=== PATIENT | male | born 1955 | race Caucasian/White ===

== ENCOUNTER → 2021-10-14 13:16 | Outpatient (CLI) | payer OTHER, SELFPAY ==
[2021-10-14 13:55] LABS: Appearance Urine UA CLEAR; Bilirubin Urine UA NEGATIVE (NEGATIVE); Color Urine UA YELLOW; Glucose Urine UA NEGATIVE (Negative); Ketones Urine UA NEGATIVE (NEGATIVE); Leukocyte Esterase Urine UA NEGATIVE (NEGATIVE); Nitrite Urine UA NEGATIVE (Negative); Occult Blood Urine UA TRACE-LYSED (Negative); Protein Urine UA 1+ (Negative); Specific Gravity Urine UA 1.025 (1.000-1.035); Urobilinogen Urine UA 0.2 E.U./dL (0.2)
[2021-10-14 14:21] LABS: Bacteria Urine None Seen; Culture Indicated Urine Cult Not Indicated; RBC Urine None Seen (0-5/HPF); Squamous Epithelial Cell Urine None Seen (0-5/HPF); WBC Urine 0-1/HPF (0-5/HPF)
[2021-10-14 14:40] LABS: Add Manual Diff / Slide Review NO; Basophils Absolute Auto 0 /uL (0-100); Basophils Percent Auto 0.5 % (0-2); Eosinophils Absolute Auto 200 /uL (0-450); Eosinophils Percent Auto 2.6 % (2-4); Hematocrit 44.1 % (41-53); Lymphocytes Absolute Auto 1800 /uL (1100-4500); Lymphocytes Percent Auto 25.5 % (25-40); Mean Corpuscular HGB Conc 33.9 % (30-36); Mean Corpuscular Hemoglobin 28.8 PG (26-34); Monocytes Absolute Auto 800 /uL (0-900); Monocytes Percent Auto 10.3 % (3-14); Neutrophils Absolute Auto 4400 /uL (1500-7000); Neutrophils Percent Auto 61.1 % (50-75); Platelet Count 354 X10^3/uL (150-400); Red Blood Cell Count 5.19 X10^6/uL (4.5-5.9); Red Cell Distribution Width 13.8 % (11.6-14.8); White Blood Cell Count 7.3 X10^3/uL (4.5-11.0)
[2021-10-14 14:44] LABS: Hemoglobin A1C% w Est Avg Glu 6.5 % (4.0-6.0)
[2021-10-14 15:04] LABS: BUN Creatinine Ratio 20.2 (6-22); Blood Urea Nitrogen 21 mg/dL (9-20); Carbon Dioxide 23 mmol/L (22-32); Chloride 103 mmol/L (98-107); Estimated Glomerular Filt Rate > 60 mL/min (>60); Glucose 112 mg/dL (80-110); HEMOLYSIS < 15 (0-50); Sodium 139 mmol/L (137-145)
[2021-10-14 15:40] LABS: Erythrocyte Sedimentation Rate 10 MM/HR (0-15)
== END ==
PROVIDERS: Referring Provider Orthopaedic Surgery; Visit Provider Orthopaedic Surgery
DX: Z01.818 Encounter for other preprocedural examination (principal); Z01.812 Encounter for preprocedural laboratory examination; R73.9 Hyperglycemia, unspecified; N39.0 Urinary tract infection, site not specified
CPT/HCPCS: 36415; 80048; 81001; 83036; 85025; 85651; 93005; 93010

== ENCOUNTER → 2021-11-03 09:31 | Outpatient (CLI) | payer OTHER, SELFPAY ==
[2021-11-03 14:12] LABS: COVID-19 CEPHEID PCR (VTM/NP) Negative (Negative)
== END ==
PROVIDERS: PCP Family Medicine; Referring Provider Orthopaedic Surgery; Visit Provider Orthopaedic Surgery
DX: Z20.822 Contact with and (suspected) exposure to COVID-19 (principal)
CPT/HCPCS: U0003; U0005

== ENCOUNTER 2021-11-04 09:24 | Day surgery (SDC) | payer OTHER, SELFPAY ==
[2021-10-27 07:35] VITALS: BMI 38.7
[2021-11-04] VITALS (14 sets, daily range): BP systolic 121–157; BP diastolic 62–84; PULSE 60–89; RESP 12–18; TEMP 35.9–37.2; O2SAT 93–98; BMI 38.7
--- NOTE | 2021-11-04 09:30 | DI.RAD.S_ITS ---
PROCEDURE: XR KNEE RT 1TO2V INDICATIONS: prosthesis placement TECHNIQUE: 2 view(s) of the knee acquired. COMPARISON: [facility] [place], [place], XR KNEE 4+ VIEWS LEFT, 01/30/2021, 14:00. FINDINGS: Bones: Patient is status post knee joint arthroplasty. Hardware components are in expected positions. Visualized bony structures are intact. Healed fracture deformity again seen involving the proximal fibular shaft. Soft tissues: Overlying postoperative changes are noted. IMPRESSION: Expected immediate postoperative appearance of right TKA. Dictated by: Prosper Jain RRA Interpreted: Carolyn Seo MD on 11/04/2021 at 15:44 Transcribed by: ROMARIO on 11/04/2021 at 15:44 Approved by: Carolyn Seo M.D. on 11/04/2021 at 17:25
[2021-11-04] MEDS: PREGABALIN 75 MG CAPSULE PO (10:15)
[2021-11-04] MEDS: ACETAMINOPHEN 325 MG TABLET 975 MG PO (10:15)
[2021-11-04] MEDS: CELECOXIB 200 MG CAPSULE PO (10:16)
[2021-11-04] MEDS: VANCOMYCIN 1,000 MG/200 ML PIGGYBACK 200 MG IV (10:26)
[2021-11-04] MEDS: LACTATED RINGERS 1,000 ML 84 ML IV ×2 (10:30→13:59)
--- NOTE | 2021-11-04 11:03 | PM.PREOP ---
Pre-operative Note COVID-19 COVID-19 status: Negative Interval Note History & Physical reviewed/Exam performed by Physician: Yes Changes to H&P: No
--- NOTE | 2021-11-04 11:03 | PM.OP.1 ---
Operative Date/Time/Diagnoses Date of procedure: 11/04/21 Time of procedure: 11:30 Pre-op diagnosis: Right knee persistent pain after unicompartment arthroplasty Post-op diagnosis: same Procedure & Clinicians Procedure: Right total knee arthroplasty revision unicompartment to total knee arthroplasty Same procedure as scheduled: Yes Indications: The patient has had progressively worsening right knee pain after a right knee medial compartment arthroplasty with radiographic changes in the lateral and patellofemoral compartment consistent with arthritis. Non-operative management has failed and the patient has requested revision total knee replacement. The risks, benefits and alternatives to surgery were discussed with the patient prior to proceeding. Risks discussed included, but were not limited to, failure to relieve pain, stiffness, infection, nerve damage, deep venous thrombosis, pulmonary embolism, stroke, coma, heart attack, permanent paralysis and , as well as the potential need for eventual rerevision of the prosthetic. Surgeon: Naheed Yepez Manager Risk Management: Tylor Nava Anesthesia Type: General and Spinal Operative Notes Findings: No obvious loosening, some patellofemoral and lateral compartment OA Closure Type: primary Specimen(s): other (Cultures and PCR) Prosthetic devices, grafts, tissues, transplants, or devices: Journey BCS 2 size 7 femur, size 7 tibia, +12 poly, size 12 by 100 tibial stem, 38 oval patella Applied: drain(s) Estimated Blood Loss (mL): 250 Blood products transfused: none Tourniquet time (min): 136 Procedure in detail: The patient was seen in the pre-operative area, where the patient identified the right knee as the operative site and this was marked with my initials. The patient received pre-operative antibiotics, and was taken to the operating room and placed on the operative table in the supine position. After satisfactory anesthesia, a maritime engineer out was performed. The right leg was encircled with a tourniquet about the proximal thigh, and the leg was prepared from the toes to the tourniquet with ChloroPrep in the usual fashion and draped through sterile drapes. The leg was elevated and exsanguinated with Eschmark bandage and the tourniquet inflated to [250] mmHg pressure. The knee was approached through an approximately 20 cm incision centered over the patella and carried into the knee through a medial parapatellar arthrotomy. A portion of the acl and lateral meniscus was resected. Soft tissue was carefully mobilized around the patella the patella was measured with a caliper. Bone was resected from the patella and the patellar height was reconstituted with up an appropriate sized patellar component. A cover was then placed on the patella. A small amount of additional lateral meniscus was resected. There was thickening of the synovium of the knee but nothing that looks consistent with a chronic low-grade infection. The polyethylene from the tibial component was removed in order to provide additional room. Piece of synovium was sent for culture and sensitivity. The distal femur was cut at 5?. A [+2] cut was used. The femoral unicompartment component was left in and used for determining distal joint line. It looked like an appropriate cut and that there would be adequate distal femoral bone. The lateral condyle was cut a portion of the most medial aspect of the medial condyle and lateral aspect of the medial femoral condyle was scored with the saw. I then used a TPS and multiple osteotomes to meticulously remove the femoral component. There was essentially known bone loss distally. There was no bone loss posteriorly. Small fragment of bone and soft tissue from underneath the femoral component was sent for culture and sensitivity and I sent a combined PCR specimen. It looked like an adequate distal femoral cut and was noted that it was aligned and smooth. It looked like an appropriate distal femoral cut and the cut was made without difficulty. Next attention was directed to the tibia. A combination of osteotomes and the TP S was used to meticulously remove the tibial component. There was no bone loss anteriorly and the peripheral rim was noted to be intact specially posteriorly. An extramedullary guide was used for the tibial cut. He had a history of prior tibial fracture and I specifically did not want to instrument the medullary canal. His previous tibia fracture was treated with pins and plaster. He did have chronic scarring on the anterior tibia suggestive of possible low-grade prior infection. 13 mm was resected off the least affected side lateral tibia. This resulted in a skim cut off of the medial side. The tibia was prepared. The rotation was assessed. The patient was placed in extension residual medial and lateral meniscus as well as any residual bone was carefully resected. [No] additional tibia was resected. Hemostasis was achieved especially posteriorly. Additional local was injected into the posterior capsule. The extension gap was assessed and additional releases for gap balancing were performed as necessary. It was checked with the gap tray line worker. An osteotome was used in a Sham for the deficient posterior medial femoral condyle. The rotation was assessed and the appropriate size femoral cutting guide was placed on the distal femur and finishing cuts were made. There was good opposition to the bone both on the medial and lateral side without significant defect at any point in the femoral component fit to the bone. There was no evidence of notching. The anterior, posterior and chamfer cuts were then made. The posterior osteophytes and soft tissues were then removed. The posterior capsule was injected with part of a mixture of 60 ml 0.25% Marcaine mixed with 20 ml Exparel for post operative pain control. The remainder of this mixture was injected into the capsule and subcutaneous tissues during cement curing. The notch was finished. The tibial and femoral components were then placed and the knee placed through a range of motion. Range of motion was [0-130], with good stability throughout the range. The trials were then removed, and the tibia was finished. There was a small defect on the proximal medial tibia and I opted to use a longer cemented stem in order to extend the fixation. The tibia was reamed to a size 12 for the short stem. The bone was prepared with pulsatile lavage, and dried with a sponge. Cement was applied and the final prosthetics placed. Excess cement was removed during and after cement curing. A brief Betadine soak was performed. After confirming there was no extruded cement posteriorly, the final tibial insert was placed. The patella was cemented with a separate batch. The knee was copiously irrigated and the tourniquet deflated. Hemostasis was obtained with the Bovie cautery. A drain was placed and brought out superolaterally. The capsule was closed with interrupted nonabsorbable suture. The subcutaneous layer was closed with barbed sutures, and the skin with a running 3-0 V-Lock suture and [place]. A jt dressing was applied and the patient was taken to recovery having tolerated the procedure well. Complications: none Post-operative Condition: stable Disposition: Acute Care Plan for aftercare: The patient will be maintained on a standard total knee replacement protocol with weight bearing as tolerated. The patient will receive aspirin and sequential compression devices for DVT prophylaxis. The patient will be discharged home when safe for the home environment.
[2021-11-04] MEDS: CEFAZOLIN VIAL 3 GM in SODIUM CHLORIDE 0.9% 100 ML IV (12:08)
[2021-11-04] MEDS: TRANEXAMIC ACID 1,000 MG VIAL 1000 MG INJ ×2 (12:18→14:38)
--- NOTE | 2021-11-04 12:49 | SUR.OPER ---
Supine on padded OR bed. Pillow under head, arms secured on padded armboards <90 degree abduction. Safety belt across torso. Non-operative leg secured with tape over blanket over lower leg. Operative leg secured in DeMayo/Neo/Nathe positioner. Foam padded brace at thigh of operative leg. Directed and approved by surgeon
[2021-11-04] MEDS: BUPIVACAINE LIPOSOME 266 MG/20 ML VIAL INJ (13:02)
[2021-11-04] MEDS: BUPIVACAINE 0.5% (PF) 30 ML, EPINEPHrine 0.15 MG INJ (13:03)
[2021-11-04] MEDS: OXYCODONE IR 5 MG TABLET PO ×2 (15:27→17:34)
[2021-11-04] MEDS: hydrOXYzine pamoate 25 MG CAPSULE PO (15:45)
[2021-11-04] MEDS: IBUPROFEN 400 MG TABLET PO ×2 (17:35→20:22)
[2021-11-04] MEDS: ACETAMINOPHEN 325 MG TABLET 650 MG PO (17:35)
[2021-11-04] MEDS: LACTATED RINGERS 1,000 ML 100 ML IV (17:40)
[2021-11-04] MEDS: CEFAZOLIN 2 GM/20 ML SYRINGE IV (17:41)
--- NOTE | 2021-11-04 18:23 | PC.NURSE ---
Addendum entered by Temi Mccoy R.N. 11/04/21 18:51: Patient given oxycodone earlier with tylenol and ibuprofen, he state that his pain is settling in at a 6. HE was up to an 8. Visiting with his . Original Note: 1555- Patient admitted to the floor with a r.total knee replacement. His jt dressing is cdi, with ashanti wrap in place. Motor tucked in patients pocket and flashing green. Patients hemovac unclamped at 1700. He has LR infusing at 100cc/hr. Given tylenol, oxycodone, and ibuprofen for discomfort of 6/10 to knee. He ate well at dinner, his is here visiting and patient is comfortable. He voices no needs at this time. Skin is otherwise clear.
[2021-11-04] MEDS: OXYCODONE IR 10 MG TABLET PO (20:22)
[2021-11-04] MEDS: DOCUSATE 100 MG CAPSULE PO (20:22)
[2021-11-04] MEDS: ASPIRIN EC 81 MG TABLET PO (20:23)
[2021-11-04] MEDS: METOPROLOL IR 50 MG TABLET PO (20:23)
[2021-11-05] MEDS: IBUPROFEN 400 MG TABLET PO ×4 (00:11→11:59)
[2021-11-05] MEDS: ACETAMINOPHEN 325 MG TABLET 650 MG PO ×3 (00:11→11:58)
[2021-11-05] MEDS: OXYCODONE IR 10 MG TABLET PO ×5 (00:12→13:00)
[2021-11-05] MEDS: CEFAZOLIN 2 GM/20 ML SYRINGE IV (02:56)
[2021-11-05 03:00] VITALS: BP 120/64; PULSE 70; RESP 18; TEMP 36.6; O2SAT 98
[2021-11-05 06:09] LABS: Hematocrit 36.6 % (41-53); Hemoglobin 12.4 g/dL (13.5-17.5)
--- NOTE | 2021-11-05 07:41 | P.DS_ITS ---
History of Present Illness History of Present Illness Date Patient Seen: 11/05/21 Time Patient Seen: 07:41 Chief complaint: OPB Narrative: Operative Date/Time/Diagnoses Date of procedure: 11/04/21 Time of procedure: 11:30 Pre-op diagnosis: Right knee persistent pain after unicompartment arthroplasty Post-op diagnosis: same Procedure & Clinicians Procedure: Right total knee arthroplasty revision unicompartment to total knee arthroplasty Same procedure as scheduled: Yes Indications: The patient has had progressively worsening right knee pain after a right knee medial compartment arthroplasty with radiographic changes in the lateral and patellofemoral compartment consistent with arthritis. Non-operative management has failed and the patient has requested revision total knee replacement. The risks, benefits and alternatives to surgery were discussed with the patient prior to proceeding. Risks discussed included, but were not limited to, failure to relieve pain, stiffness, infection, nerve damage, deep venous thrombosis, pulmonary embolism, stroke, coma, heart attack, permanent paralysis and , as well as the potential need for eventual rerevision of the prosthetic. Surgeon: Naheed Yepez Manager Quantitative: Tylor Nava Anesthesia Type: General and Spinal Operative Notes Findings: No obvious loosening, some patellofemoral and lateral compartment OA Closure Type: primary Specimen(s): other (Cultures and PCR) Prosthetic devices, grafts, tissues, transplants, or devices: Journey BCS 2 size 7 femur, size 7 tibia, +12 poly, size 12 by 100 tibial stem, 38 oval patella Applied: drain(s) Estimated Blood Loss (mL): 250 Blood products transfused: none Tourniquet time (min): 136 Discharge Providers Provider Discharge Date: 11/05/21 Primary care physician: Sindi Connell MD Consults: 11/04/21 09:30 Consult to Anesthesiology Routine Comment: Consulting Provider: Anesthesiologist Reason for consultation: Regional block for post operative pain control 11/04/21 15:50 Consult to Discharge Planning Routine Comment: Consult to Physical Therapy Evaluate & Treat Comment: Physician Instructions: postop TKA protocol Consult to Respiratory Therapy Evaluate & Treat Comment: Physician Instructions: Evaluate and treat Discharge provider: Kizzy Ríos PA-C Summary Hospital Course Discharge Diagnosis: s/p revision of unicompartmental RIGHT knee arthroplasty to total knee arthroplasty Hospital Course: Mr Solorio'jenise hospital course was unremarkable. On POD# 1 he was eating and voiding without difficulty or assistance and his pain was well-controlled with oral medication. He was evaluated by PT during his stay. Exam Vital Signs (past 8 hours): - 11/05/21 03:00 Temperature 97.8 F Pulse Rate 70 Respiratory Rate 18 Blood Pressure 120/64 Pulse Oximetry 98 Oxygen Flow Rate 0 Oxygen Delivery Method Room Air Oxygen Flow Rate 0 Narrative Exam Narrative: 5/5 strength in hip flexors, quadriceps, hamstrings, DF, PF, EHL bilaterally. Sensation to light touch intact in BLE. Calves soft, compressible and nontender. JUAN JOSE dressing with scant bloody drainage, operating and intact. Objective Labs Result Diagrams: 11/05/21 05:43 Labs: Laboratory Results - last 24 hr 11/05/21 05:43 Hgb 12.4 L Hct 36.6 L PFSH Medical History Borderline high cholesterol Elevated hemoglobin A1c Hearing impaired HTN (hypertension) Neuropathy BREANNA on CPAP Osteoarthritis Osteomyelitis (1975) Surgical History (Updated 11/05/21 @ 07:37 by Kizzy Ríos PA-C) H/O vasectomy History of bunionectomy of both great toes Hx of knee surgery S/P right unicompartmental knee replacement Social History household members: spouse Smoking Status: Former smoker alcohol intake: current Discharge Assessment & Plan Assessment and Plan Assessment: s/p revision of unicompartmental RIGHT knee arthroplasty to total knee arthroplasty Plan of Treatment: D/c home, outpt PT, multimodal pain control. ASA 81 mg BID x 6 weeks for VTE prophylaxis. JUAN JOSE dressing instructions provided. F/u in office in 2 weeks. Discharge Plan Discharge Plan Patient Disposition: Home Discharge orders & Medications Discharge Orders: Discharge (Order); Ordered 11/05/21 Ordered By: Kizzy Ríos Prescriptions: New acetaminophen 325 mg Tablet 650 mg PO Q6HR PRN (Reason: fever or pain) Qty: 240 1RF aspirin 81 mg Tablet,Delayed Release (Dr/Ec) 81 mg PO BID Qty: 90 0RF docusate sodium 100 mg Capsule 100 mg PO BID PRN (Reason: constipation) Qty: 60 2RF oxycodone 5 mg Tablet 5 mg PO Q4-6H PRN (Reason: Pain, Moderate (4-6)) Qty: 60 0RF Continued chlorthalidone 25 mg Tablet 25 mg PO DAILY amlodipine 5 mg Tablet 5 mg PO DAILY metoprolol tartrate 50 mg Tablet 50 mg PO BID ibuprofen 200 mg Tablet 400 mg PO BID-TID diphenhydramine-acetaminophen [Acetaminophen PM] 25-500 mg Tablet 2 tab PO BEDTIME lisinopril 40 mg Tablet 40 mg PO DAILY Label Comments: Takes at lunchtime Follow up/Referrals: Sindi Connell MD [Primary Care Provider] - Naheed Yepez MD [Physician] - As previously scheduled (Follow up with Tylor Nava PA-C, on 11/17/2021 @ 1:40 pm at [facility] in [place]) Diet/Activity/Treatments Diet: Diet as Tolerated Activity: Walk frequently! Cold/Heat Therapy: Ice to knee as needed for pain. Skin/Wound/Dressing Care Dressing: May remove MIKE bandage and shower. Leave JUAN JOSE dressing in place. When the battery expires in 5-7 days, you may disconnect the battery pack and discard. Leave the dressing in place until your follow up appointment in the office. No bathing or otherwise soaking incision. Visit Report/Discharge Packet Instructions: DI for Knee Replacement Stand Alone Forms: Surgery Discharge Discharge Data Primary Care Provider: Sindi Connell Attending Provider: Naheed Yepez
[2021-11-05] MEDS: METOPROLOL IR 50 MG TABLET PO (09:00)
[2021-11-05] MEDS: lisinopriL 20 MG TABLET 40 MG PO (09:00)
[2021-11-05] MEDS: ASPIRIN EC 81 MG TABLET PO (09:00)
[2021-11-05] MEDS: DOCUSATE 100 MG CAPSULE PO (09:00)
[2021-11-05] MEDS: CHLORTHALIDONE 25 MG TABLET PO (09:00)
[2021-11-05] MEDS: AMLODIPINE 5 MG TABLET PO (09:00)
--- NOTE | 2021-11-05 10:10 | PT.IIE ---
Current Diagnoses Unilateral primary osteoarthritis, right knee (11/04/21) Presence of unspecified artificial knee joint (11/04/21) Surgery Performed Operation Date: 11/04/21 11:30 Actual Procedures p Total Knee Arthroplasty - Revision all components, uni to total(Right) - Naheed Yepez MD Surgical History (Last Reviewed 11/04/21 @ 09:52 by Ernestine Payne, RN) H/O vasectomy History of bunionectomy of both great toes Hx of knee surgery S/P right unicompartmental knee replacement Medical History (Last Reviewed 11/04/21 @ 09:52 by Ernestine Payne, RN) Borderline high cholesterol Elevated hemoglobin A1c Hearing impaired HTN (hypertension) Neuropathy BREANNA on CPAP Osteoarthritis Osteomyelitis (1976) Physical Therapy Inpatient Evaluation/Re-Eval M1 PT/OT-IP Prior Functional Status Start: 11/05/21 12:21 Freq: NEEDED Status: Active Protocol: Document 11/05/21 10:10 AB (Rec: 11/05/21 12:34 AB [id number]) Medical Review Prior Functional Status Medical History Reviewed Yes Communication able to make needs known Mobility and Gait pt stated that he is modified independent witha ll mobilities and ambulation without AD indoors but uses SPC for stair climbing; uses SPC for outdoor mobility Social History Household Members spouse Living Arrangements House Number of Floors (Floors) One Floor Number of Stairs To Enter/Railing? 3 steps to enter the house without rails 2 steps down to master bedroom but pt stated that he can use another room and don't need to go down 2 steps Home Environment Standard Height Toilet,Tub/ Shower Home Equipment Front Wheel Walker,Straight Cane,Shower Seat without Backrest,Hand Held Shower M2 PT-IP Current Condition Start: 11/05/21 12:21 Freq: NEEDED Status: Active Protocol: Document 11/05/21 10:10 AB (Rec: 11/05/21 12:34 AB [id number]) Physical Therapy Current Condition Current Condition Evaluation Date 11/05/21 Treatment Diagnosis s/p R TKA; difficulty in walking Onset Date 11/04/21 M3 PT-IP Subjective Start: 11/05/21 12:21 Freq: NEEDED Status: Active Protocol: Document 11/05/21 10:10 AB (Rec: 11/05/21 12:34 AB [email or web address]) Subjective Physical Therapy Visit Type Type Initial Evaluation Visit Start Time 10:10 Visit Stop Time 11:06 Total Visit Minutes 56 Physical Therapy Visit Comments Patient Comments agreeable to do PT Therapy Pain Assessment Pain When Pain Assessed At Rest Pain Present Pain Present Pain Reported Location right knee Intensity 2 Scale Used Numeric (0 - 10) Pain Management Techniques Distraction,Modification of Treatment,Re-positioning, Timing of Activity with Medications M4 PT-IP Mobility and Gait Start: 11/05/21 12:21 Freq: NEEDED Status: Active Protocol: Document 11/05/21 10:10 AB (Rec: 11/05/21 12:34 [id number]) PT-Bed Mobility Assessment Supine to Sit Supine to Sit Standby Assistance PT-Transfer Assessment Sit to and From Stand Sit to and from Stand Standby Assistance,Contact Guard Assistance,1 Person Assistance,Use of Upper Extremities Equipment Transfer Assistive Device Gait Belt,Front Wheeled Walker Orthotic/Prosthetic Devices or Brace: No Transfers Transfer Destination Chair Transfer Technique ambulated Transfer Ability Level of Assist Standby Assistance,Contact Guard Assistance,1 Person Assistance,Use of Upper Extremities Comments Mobility Comments pt completed supine to sit SBA . able to sit on EOB SBA. completed sit to stand CGA and ambulated in room using FWW SBA to CGA. pt sat on chair. educated on stair climbing. pt stated that he prefers using 2 SPC for stair climbing . pt completed sit to stand from chair SBA and ambulated to platform step using FWW SBA . completed up/down platform step using B SPC max A and max cues. completed again and required mod to max A on 2nd attempt. pt ambulated ~ 35 ft using FWW SBA to CGA and ambulated back to his room. requested to use the toilet and ambulated to the toilet using FWW SBA. able to manage toileting needs without assistance. pt ambulated out of the the toilet to the sink using FWW SBA and able to maintain standing using FWW SBA and completed handwashing. pt ambulated to his chair using fWW SBA. positioned on the the chair. call light and table placed within reach. Caregiver training set up at 1pm with spouse this afternoon . Gait Assessment Gait Gait Assistance Required: Standby Assistance,Contact Guard Assist Distance (Feet) 35 Able to Maintain Weight Bearing Status Yes During Gait Assistive Devices Assistive Device Gait Belt,Front Wheeled Walker Orthotic/Prosthetic Devices or Brace: No Gait Deviations General Gait Pattern Antalgic,Decreased Stride Length,Decreased Feet Clearance Factors Limiting Gait Function Factors Limiting Gait Function Decreased Activity Tolerance, Decreased Strength,Limited Range of Motion,Pain,Poor Balance,Poor Safety Awareness Stair Climbing Assessment Evaluation Level of Assist On Stairs Moderate Assistance,Maximal Assistance,1 Person Assistance Devices Stair Climbing Assistive Devices Straight Cane Technique/Endurance Stair Climbing Direction Ascend and Descend Stair Climbing Technique Step to Step Number of Steps Climbed 1 Query Text: Stair Climbing Set # Repetitions (reps) 2 PT-Balance Assessment Sitting Balance and Reactions Static Sitting Balance Ability Normal Dynamic Sitting Balance Ability Good Standing Balance and Reactions Static Standing Balance Ability Fair Dynamic Standing Balance Ability Fair Device Used FWW M5 PT-IP Objective Assessments Start: 11/05/21 12:21 Freq: NEEDED Status: Active Protocol: Document 11/05/21 10:10 AB (Rec: 11/05/21 12:34 AB [id number]) Orientation Orientation/Cognition Level of Alertness Alert Orientation Name,Place,Situation Safety Awareness Decreased Safety Awareness Memory Description No Deficits Noted Gross Range of Motion Lower Extremity ROM Impairments R knee flexion: ~ 80 ben Strength Lower Extremity Strength Assessment Right Impaired Hip 4-/5 Knee 4-/5 Coordination Assessment Gross Coordination Gross Coordination WNL Sensation Assessment Sensation Gross Sensation WNL Muscle Tone Muscle Tone WNL Yes M6 PT-IP Treatment Start: 11/05/21 12:21 Freq: NEEDED Status: Active Protocol: Document 11/05/21 10:10 AB (Rec: 11/05/21 12:34 AB [id number]) Physical Therapy Treatment Education Education Provided Precautions,Weight Bearing Status,Post-Op Packet,Safety M7 PT-IP Assessment and Plan Start: 11/05/21 12:21 Freq: NEEDED Status: Active Protocol: Document 11/05/21 10:10 AB (Rec: 11/05/21 12:34 AB [email or web address]) PT Summary Assessment and Plan Potential Rehabilitation Potential Good Status of Condition at Evaluation Stable Summary Impairments Pain,ROM,Strength,Balance, Coordination,Bed Mobility, Transfers,Gait,Activity Tolerance Assessment Summary pt requiring SBA to CGA with ambulation using FWW but requires mod to max a with stairclimbing. caregiver training set up this afternoon at 1 pm with pt and spouse. will continue to assess progress. Goals Bed Mobility Goal Independent Transfer Goal Independent,Front Wheeled Walker Gait Goal Independent,Front Wheel Walker Gait Distance 200 Other Goals up/down 3 steps using 2 SPC SBA Days to Meet Goals 5 Frequency of Treatment Frequency Of Treatment Twice a Day Treatment Plan Physical Therapy Treatment Plan Bed Mobility Training,Transfer Training,Gait Training, Therapeutic Exercise,Balance Retraining,Post Op Education, Discharge Planning,Hot or Cold Pack,Neuromuscular Re-ed, Coordination Retraining,Manual Therapy Weight Bearing Status Weight Bearing Status Weight Bear as Tolerated Allowed Weight Bearing Amount (enter % RLE WBAT or #) (%) Recommendations To Nursing Amount of Assist Needed 1 Person Assist Discharge Recommendations PT Discharge Recommendations Home with Assistance, Outpatient PT Transportation Needs at Discharge Private Vehicle
[2021-11-05 10:18] VITALS: BP 122/58; PULSE 63; RESP 16; TEMP 36.4; O2SAT 98
--- NOTE | 2021-11-05 11:49 | CM.DANOTE ---
Initial DCP Assessment Note Pt is a 66 yo male, resident of [place], POD#1 from right uni knee surgery by Dr Yepez PCP: Sindi Connell Payer: L+I Reviewed chart, pt discussed in multidisciplinary rounds this morning. Therapy pending this morning; pt has planned for home, DC order from Ortho has already been initiated this morning. Met w/patient, introduced role and confirmed above. Patient eager to return home w/supportive spouse. No needs expected from DC planning team although will remain available in case this changes today. NADIA Blunt Discharge Planning/Care Management CM Discharge Assessment Start: 11/05/21 11:45 Freq: Status: Active Protocol: Document 11/05/21 11:46 ELIZABETH (Rec: 11/05/21 11:49 ELIZABETH [id number]) Discharge Planning Assessment Assigned Show Card Letterer NADIA Velasquez DPOA/Assigned Designee Name Caryn Solorio, spouse Contact Information [phone] cell [phone] home Advance Directives? No History Provided By Patient Prior Living Arrangements House Household Members spouse Type of transportation used prior to Relies on Others admit Independent with ADL's Yes: Poor activity tolerance Is patient alert and oriented? Yes Needs Assistance With Home Chores / Shopping Barriers to Discharge No Comment Patient plans to DC home w/ supportive spouse to assist upon DC Discharge Plan Home Referrals Initiated None needed
[2021-11-05 13:01] VITALS: BP 134/60; PULSE 65; RESP 16; TEMP 36.4; O2SAT 98
--- NOTE | 2021-11-05 13:05 | PT.IPTN ---
Current Diagnoses Unilateral primary osteoarthritis, right knee (11/04/21) Presence of unspecified artificial knee joint (11/04/21) Surgery Performed Operation Date: 11/04/21 11:30 Actual Procedures p Total Knee Arthroplasty - Revision all components, uni to total(Right) - Naheed Yepez MD Physical Therapy Treatment Note M2 PT-IP Current Condition Start: 11/05/21 12:21 Freq: NEEDED Status: Active Protocol: Document 11/05/21 10:10 AB (Rec: 11/05/21 12:34 AB [id number]) Physical Therapy Current Condition Current Condition Evaluation Date 11/05/21 Treatment Diagnosis s/p R TKA; difficulty in walking Onset Date 11/04/21 M3 PT-IP Subjective Start: 11/05/21 12:21 Freq: NEEDED Status: Active Protocol: Document 11/05/21 13:05 AB (Rec: 11/05/21 14:56 AB [email or web address]) Subjective Physical Therapy Visit Type Type Treatment Note Visit Start Time 13:05 Visit Stop Time 13:41 Total Visit Minutes 36 Number of ADVANCED MANAGER Visits 0 Physical Therapy Visit Comments Patient Comments agreeable to do PT Therapy Pain Assessment Pain When Pain Assessed At Rest Pain Present Pain Present Pain Reported Location right knee Intensity 3 Scale Used Numeric (0 - 10) M4 PT-IP Mobility and Gait Start: 11/05/21 12:21 Freq: NEEDED Status: Active Protocol: Document 11/05/21 13:05 AB (Rec: 11/05/21 14:56 AB [email or web address]) PT-Bed Mobility Assessment Supine to Sit Supine to Sit Standby Assistance Sit to Supine Sit to Supine Standby Assistance PT-Transfer Assessment Sit to and From Stand Sit to and from Stand Standby Assistance,Contact Guard Assistance,1 Person Assistance,Use of Upper Extremities Equipment Transfer Assistive Device Gait Belt,Front Wheeled Walker Orthotic/Prosthetic Devices or Brace: No Transfers Transfer Destination Bed,Chair Transfer Technique Stand Step Pivot Transfer Ability Level of Assist Standby Assistance,Contact Guard Assistance Comments Mobility Comments spouse in room with pt for caregiver training. educated spouse on how to use safety belt and how to assist pt. spouse was able to put safety belt on pt. assisted pt with sit to stand and step transfer to bed CGA. pt completed bed mobility si<>supine SBA. educated spouse on how to assist pt with stair climbing. pt completed sit to stand CGA with spouse assisting and ambulated towards platform step using FWW CGA. completed up/down step using B SPC with spouse assisting mod A. pt repeated x 3 reps. initial cues provided by pt but able to complete with spouse cueing after first rep. pt ambulated back to his room using FWW CGA from spouse. sat on chair. call light and table placed within reach. pt and spouse without further concerns. Gait Assessment Gait Gait Assistance Required: Standby Assistance,Contact Guard Assist Distance (Feet) 40 Able to Maintain Weight Bearing Status Yes During Gait Assistive Devices Assistive Device Gait Belt,Front Wheeled Walker Orthotic/Prosthetic Devices or Brace: No Gait Deviations General Gait Pattern Antalgic,Decreased Stride Length,Decreased Feet Clearance Factors Limiting Gait Function Factors Limiting Gait Function Decreased Activity Tolerance, Decreased Strength,Limited Range of Motion,Pain,Poor Balance Stair Climbing Assessment Evaluation Level of Assist On Stairs Moderate Assistance,1 Person Assistance Devices Stair Climbing Assistive Devices Straight Cane Technique/Endurance Stair Climbing Direction Ascend and Descend Stair Climbing Technique Step to Step Number of Steps Climbed 1 Stair Climbing Set # Repetitions (reps) 3 Comments Stair Climbing Comments pls refer to mobiltiy section for details M5 PT-IP Objective Assessments Start: 11/05/21 12:21 Freq: NEEDED Status: Active Protocol: Document 11/05/21 10:10 AB (Rec: 11/05/21 12:34 AB [email or web address]) Orientation Orientation/Cognition Level of Alertness Alert Orientation Name,Place,Situation Safety Awareness Decreased Safety Awareness Memory Description No Deficits Noted Gross Range of Motion Lower Extremity ROM Impairments R knee flexion: ~ 80 ben Strength Lower Extremity Strength Assessment Right Impaired Hip 4-/5 Knee 4-/5 Coordination Assessment Gross Coordination Gross Coordination WNL Sensation Assessment Sensation Gross Sensation WNL Muscle Tone Muscle Tone WNL Yes M6 PT-IP Treatment Start: 11/05/21 12:21 Freq: NEEDED Status: Active Protocol: Document 11/05/21 13:05 AB (Rec: 11/05/21 14:56 AB [email or web address]) Physical Therapy Treatment Education Education Provided Safety M7 PT-IP Assessment and Plan Start: 11/05/21 12:21 Freq: NEEDED Status: Active Protocol: Document 11/05/21 13:05 AB (Rec: 11/05/21 14:56 AB [email or web address]) PT Summary Assessment and Plan Potential Rehabilitation Potential Good Summary Impairments Pain,ROM,Strength,Balance, Coordination,Bed Mobility, Transfers,Gait,Activity Tolerance Progress Towards Goals Progressing Toward Goals Assessment Summary caregiver training conducted and spouse was able to assist pt safely. pt plans to go home today and may go home when medically stable. Goals Bed Mobility Goal Independent Transfer Goal Independent,Front Wheeled Walker Gait Goal Independent,Front Wheel Walker Gait Distance 200 Other Goals up/down 3 steps using 2 SPC SBA Days to Meet Goals 5 Frequency of Treatment Frequency Of Treatment Twice a Day Treatment Plan Physical Therapy Treatment Plan Bed Mobility Training,Transfer Training,Gait Training, Therapeutic Exercise,Balance Retraining,Post Op Education, Discharge Planning,Hot or Cold Pack,Neuromuscular Re-ed, Coordination Retraining,Manual Therapy Weight Bearing Status Weight Bearing Status Weight Bear as Tolerated Allowed Weight Bearing Amount (enter % RLE WBAT or #) (%) Recommendations To Nursing Amount of Assist Needed 1 Person Assist Discharge Recommendations PT Discharge Recommendations Home with Assistance, Outpatient PT Transportation Needs at Discharge Private Vehicle
--- NOTE | 2021-11-05 14:56 | PC.NURSE ---
Day shift: Paperwork signed and all questions answered. Pt has all personal belongings. scripts went electronic to Pt's pharmacy. Spouse in room for d/c teachings. Kvng-vac removed and he tolerated well. Kvng-vac site dressing is CDI. CMS intact. Cleared by PT. Pain has been well controlled per JUL. Left unit via WC at approx 1510. His Spouse is driving him home.
== END 2021-11-05 15:22 | disposition home or self-care (01) ==
LOC: OR 09:26 → AC 09:26
PROVIDERS: PCP Family Medicine; Referring Provider Orthopaedic Surgery; Visit Provider Orthopaedic Surgery
PROC: 0SRC0JZ Replacement of Right Knee Joint with Synthetic Substitute, Open Approach (ICD-10-PCS; CPT 27447; principal; 2021-11-04 11:30)
DX: T84.84XA Pain due to internal orthopedic prosthetic devices, implants and grafts, initial encounter (principal); M17.11 Unilateral primary osteoarthritis, right knee; I10 Essential (primary) hypertension
CPT/HCPCS: 27487; 36415; 73560; 85014; 85018; 87070; 87075; 87176; 87205; 87801; 97161; 97530; C1776; C1713; C9290; J0171; J0690; J1100; J2250; J2405; J2704; J3010